=== PATIENT | female | born 1990 | race Caucasian/White ===

== ENCOUNTER 2019-05-22 23:25 | Inpatient (IN) | payer BC ==
[2019-05-22] MEDS ORDERED: RINGERS SOLUTION,LACTATED 1,000 ML IV PRN (23:36)
[2019-05-23 00:04] LABS: ABSOLUTE EOSINOPHILS # (AUTO) 0.1 10^3/uL (0.0-0.6); ABSOLUTE MONOCYTES (AUTO) 0.4 10^3/uL (0.1-1.4); ABSOLUTE NEUT (AUTO) 3.6 10^3/uL (1.7-8.2); BASOPHILS % (AUTO) 0.4 % (0-2); EOSINOPHILS % (AUTO) 1.4 % (0-6); HEMATOCRIT 35.8 % (36.0-47.0); HEMOGLOBIN 12.8 g/dL (12.0-15.5); LYMPHOCYTES % (AUTO) 42.4 % (13-45); MEAN CORPUSCULAR HEMOGLOBIN 32.9 pg (27.0-33.4); MEAN CORPUSCULAR HGB CONC 35.8 g/dL (32.0-36.0); MEAN CORPUSCULAR VOLUME 92 fl (80-97); MONOCYTES % (AUTO) 5.6 % (3-13); PLATELET COUNT 174 10^3/uL (150-450); RED BLOOD COUNT 3.89 10^6/uL (3.72-5.28); RED CELL DISTRIBUTION WIDTH 13.2 % (11.5-14.0); SEGMENTED NEUTROPHILS % (AUTO) 50.2 % (42-78); TOTAL CELLS COUNTED % (AUTO) 100 %; WHITE BLOOD COUNT 7.1 10^3/uL (4.0-10.5)
[2019-05-23 01:29] LABS: APPEARANCE,URINE CLEAR; BILIRUBIN,URINE NEGATIVE (NEGATIVE); COLOR,URINE STRAW; GLUCOSE, URINE NEGATIVE (NEGATIVE); KETONES,URINE NEGATIVE (NEGATIVE); LEUKOCYTE ESTERASE,URINE NEGATIVE (NEGATIVE); NITRITE,URINE NEGATIVE (NEGATIVE); PROTEIN,URINE NEGATIVE (NEGATIVE); URINE SPECIFIC GRAVITY 1.005; UROBILINOGEN,URINE NEGATIVE mg/dL (<2.0)
[2019-05-23 02:22] LABS: URINE AMPHETAMINES SCREEN NEGATIVE; URINE BARBITURATES SCREEN NEGATIVE; URINE BENZODIAZEPINES SCREEN NEGATIVE; URINE COCAINE SCREEN NEGATIVE; URINE MARIJUANA (THC) SCREEN NEGATIVE; URINE METHADONE SCREEN NEGATIVE; URINE PHENCYCLIDINE SCREEN NEGATIVE
--- NOTE | 2019-05-23 03:35 | Admission Physical ---
Datetime Report Generated by CPN: 05/23/2019 03:35 CURRENT ADMISSION Chief Complaint: Uterine Contractions; Suspected Ruptured Membranes Admit Impression : Term, Intrauterine ; Active Labor Admit Plan: Admit to Unit; Initiate Labor Protocol ALLERGIES Medication Allergies: No Medication Allergies: No Known Allergies (05/23/2019) Latex: No Latex Allergies OBSTETRICAL HISTORY EDC: 05/30/2019 00:00 : 2 Para: 0 Term: 0 : 0 SAB: 1 IAB: 0 Ectopic: 0 Livin Cesareans: 0 VBACs: 0 Multiple Births: 0 Gestational Diabetes: No Rh Sensitization: No Incompetent Cervix: No DOROTHY: No Infertility: No ART Treatment: No Uterine Anomaly: No IUGR: No Hx Previous C/S: No Macrosomia: No Hx Loss/Stillborn: No PIH: No Hx : No Placenta Previa/Abruption: No Depression/PP Depression: No PTL/PROM: No Post Hemorrhage: No Current Procedures: Ultrasound Obstetrical History Comments: G1: 2018, SAB _5 weeks G2: current SEE RECORDS Alcohol: No Marijuana : No Cocaine: No Other Illicit Drugs: No Cigarettes: Never Smoker. [id number] MEDICAL HISTORY Diabetes: No Blood Transfusion: No Pulmonary Disease (Asthma, TB): No Breast Disease: No Hypertension: No Lopper Surgery: No Heart Disease: No Hosp/Surgery: No Autoimmune Disorder: No Anesthetic Complications: No Kidney Disease: No Abnormal Pap Smear: Yes Neuro/Epilepsy: No Psychiatric Disorders: No Other Medical Diseases: No Hepatitis/Liver Disease: No Significant Family History: No Varicosities/Phlebitis: No Trauma/Violence : No Thyroid Dysfunction: No Medical History Comments: prior abnormal pap "a long time ago" but WNL since INFECTIOUS HISTORY Gonorrhea: No Genital Herpes: No Chlamydia: No Tuberculosis: No Syphilis: No Hepatitis: No HIV/AIDS Exposure: No Rash or Viral Illness: No HPV: No Infectious History Comments: +HPV 2009, biopsy WNL PHYSICAL EXAM General: Normal HEENT: Normal Neurologic: Normal Thyroid: Normal Heart: Normal Lungs: Normal Breast: Normal Back: Normal Abdomen: Normal Genitourinary Exam: Normal Extremities: Normal DTRs: Normal Pelvic Type: Adequate Vital Signs: Reviewed VAGINAL EXAM Dilatation: 2 Effacement: 50 Station: -2 MEMBRANES Pooling: Positive Membranes: Ruptured Amniotic Fluid Color: Meconium, Light FETUS A EGA: 39.0 Monitoring: External US FHR- Baseline: 130 Variability: Moderate 6-25bpm Accelerations: 15X15 Decelerations: None FHR Category: Category I Estimated Weight (gm): 3700 Presentation: Vertex PLANS FOR LABOR AND DELIVERY Labor and Delivery: None Pain Management: Natural; Epidural Feeding Preference: Breast Benefit of Breast Feed Discussed: Yes Circumcision: N/A INFORMED CONSENT Signature: with User ID: [email or web address]
[2019-05-23] MEDS ORDERED: PROMETHAZINE HCL INJ 25 MG/1 ML VIAL ONE (03:45)
[2019-05-23] MEDS ORDERED: NALBUPHINE HCL INJ 10 MG/1 ML AMPULE ONE (03:45)
[2019-05-23] MEDS ORDERED: NALBUPHINE HCL INJ 10 MG/1 ML AMPULE INJ ONE (04:00)
[2019-05-23] MEDS ORDERED: PROMETHAZINE HCL INJ 25 MG/1 ML VIAL IV ONE (04:00)
[2019-05-23] MEDS ORDERED: OXYTOCIN/NORMAL SALINE 20 UNIT/1,000 ML RTUINJ ONE (06:28)
[2019-05-23] MEDS ORDERED: MISOPROSTOL 0.2 MG TABLET ONE (06:28)
[2019-05-23] MEDS ORDERED: LIDOCAINE 1% INJ-PF (10 MG/ML) 30 ML SDV ONE (06:28)
[2019-05-23] MEDS ORDERED: ONDANSETRON HCL INJ/PF 4 MG/2 ML SDV IV ONE (07:52)
[2019-05-23] MEDS ORDERED: PROMETHAZINE HCL 25 MG TABLET PO PRN (07:58)
[2019-05-23] MEDS ORDERED: PROMETHAZINE HCL INJ 25 MG/1 ML VIAL IV PRN (07:58)
[2019-05-23] MEDS ORDERED: NA PHOS,M-B/NA PHOS,DI-BA (ADULT) 133 ML ENEMA PR PRN (07:58)
[2019-05-23] MEDS ORDERED: MEASLES,MUMPS&RUBELLA VACC/PF 0.5 ML VIAL SUBCUT PRN (07:58)
[2019-05-23] MEDS ORDERED: MAGNESIUM HYDROXIDE SUSP 30 ML UDCUP PO PRN (07:58)
[2019-05-23] MEDS ORDERED: DIPHENHYDRAMINE HCL 25 MG CAPSULE PO PRN (07:58)
[2019-05-23] MEDS ORDERED: BENZOCAINE/MENTHOL AEROSOL SPRAY 56 ML TOP PRN (07:58)
[2019-05-23] MEDS ORDERED: ACETAMINOPHEN WITH CODEINE #3 TABLET PO PRN ×2 (07:58)
[2019-05-23] MEDS ORDERED: GLYCERIN/WITCH HAZEL LEAF 1 EACH MED..WIPE TP PRN (07:58)
[2019-05-23] MEDS ORDERED: PSEUDOEPHEDRINE HCL 30 MG TABLET PO PRN (07:58)
[2019-05-23] MEDS ORDERED: DIPH/PERTUSS(ACELL)/TETANUS VAC/PF 0.5 ML SYR (>=10YO) IM PRN (07:58)
[2019-05-23] MEDS ORDERED: DIBUCAINE 1% OINTMENT 28 GM TP PRN (07:58)
[2019-05-23] MEDS ORDERED: OXYTOCIN/NORMAL SALINE 20 UNIT/1,000 ML RTUINJ IV PRN (07:58)
[2019-05-23] MEDS ORDERED: ACETAMINOPHEN 650 MG SUPP.RECT PR PRN (07:58)
[2019-05-23] MEDS ORDERED: ZOLPIDEM TARTRATE 5 MG TABLET PO PRN (07:58)
[2019-05-23] MEDS ORDERED: PROMETHAZINE HCL 25 MG SUPP.RECT PR PRN (07:58)
[2019-05-23] MEDS ORDERED: BENZOCAINE/MENTHOL AEROSOL SPRAY 56 ML ONE (09:31)
[2019-05-23] MEDS: FAMOTIDINE 20 MG TABLET PO SCH ×2 (12:42→21:51)
[2019-05-23] MEDS: DOCUSATE SODIUM 100 MG CAPSULE PO SCH ×2 (12:42→17:36)
[2019-05-23] MEDS: FERROUS SULFATE 325 MG TABLET PO SCH ×2 (12:42→17:37)
[2019-05-23] MEDS: PRENATAL VITAMIN W DHA CAPSULE PO SCH (12:43)
[2019-05-23] MEDS: SENNOSIDES/DOCUSATE 8.6-50 MG 1 EACH TABLET PO SCH (12:43)
[2019-05-23] MEDS: IBUPROFEN 800 MG TABLET PO SCH ×2 (14:14→21:51)
[2019-05-24] MEDS: IBUPROFEN 800 MG TABLET PO SCH ×3 (05:10→21:50)
[2019-05-24 07:25] LABS: HEMATOCRIT 33.2 % (36.0-47.0); HEMOGLOBIN 11.6 g/dL (12.0-15.5); MEAN CORPUSCULAR HEMOGLOBIN 32.4 pg (27.0-33.4); MEAN CORPUSCULAR HGB CONC 34.9 g/dL (32.0-36.0); MEAN CORPUSCULAR VOLUME 93 fl (80-97); PLATELET COUNT 129 10^3/uL (150-450); RED BLOOD COUNT 3.58 10^6/uL (3.72-5.28); RED CELL DISTRIBUTION WIDTH 13.3 % (11.5-14.0); WHITE BLOOD COUNT 11.5 10^3/uL (4.0-10.5)
--- NOTE | 2019-05-24 10:28 | PDOC PROGRESS REPORT ---
Subjective-OB Progress Note for:: 05/24/19 Subjective: reports bleeding slowing, pain controlled with current meds. denies needs Physical Exam (OB) Vital Signs: Temp Pulse Resp BP Pulse Ox 97.8 F 76 16 117/75 100 05/24/19 07:37 05/24/19 07:37 05/24/19 07:37 05/24/19 07:37 05/24/19 07:37 Intake & Output 05/23/19 05/24/19 05/25/19 06:59 06:59 06:59 Weight 76.3 kg - Abdomen Description: Soft Hernia Present: No Fundal Description: Firm, Midline Fundal Height: u/u - u/2 - Abdominal Distension: No distension Tenderness: Nontender - Extremities Lower extremities: Marita's sign - neg Calf: Normal, Nontender Objective-Diagnostic Laboratory: 05/24/19 06:43 05/24/19 06:43 WBC 11.5 H RBC 3.58 L Hgb 11.6 L Hct 33.2 L MCV 93 MCH 32.4 MCHC 34.9 RDW 13.3 Plt Count 129 L Assessment and Plan(PN) - Assessment and Plan (1) Active labor at term Is this a current diagnosis for this admission?: Yes (2) Spontaneous rupture of amniotic membranes Is this a current diagnosis for this admission?: Yes (3) Vaginal delivery Is this a current diagnosis for this admission?: Yes - Time Spent with Patient Time with patient: Less than 15 minutes Medications reviewed and adjusted accordingly: Yes - Disposition Anticipated Discharge: Home Within: within 24 hours
[2019-05-24] MEDS: DOCUSATE SODIUM 100 MG CAPSULE PO SCH ×2 (10:54→17:25)
[2019-05-24] MEDS: SENNOSIDES/DOCUSATE 8.6-50 MG 1 EACH TABLET PO SCH (10:54)
[2019-05-24] MEDS: PRENATAL VITAMIN W DHA CAPSULE PO SCH (10:54)
[2019-05-24] MEDS: FAMOTIDINE 20 MG TABLET PO SCH ×2 (10:54→21:50)
[2019-05-24] MEDS: FERROUS SULFATE 325 MG TABLET PO SCH ×2 (10:54→17:25)
[2019-05-25] MEDS: IBUPROFEN 800 MG TABLET PO SCH (05:37)
[2019-05-25] MEDS: FERROUS SULFATE 325 MG TABLET PO SCH (10:03)
[2019-05-25] MEDS: DOCUSATE SODIUM 100 MG CAPSULE PO SCH (10:03)
[2019-05-25] MEDS: PRENATAL VITAMIN W DHA CAPSULE PO SCH (10:03)
[2019-05-25] MEDS: FAMOTIDINE 20 MG TABLET PO SCH (10:03)
[2019-05-25] MEDS: SENNOSIDES/DOCUSATE 8.6-50 MG 1 EACH TABLET PO SCH (10:03)
--- NOTE | 2019-05-25 10:20 | PDOC PROGRESS REPORT ---
Subjective-OB Progress Note for:: 05/25/19 Subjective: Doing well, ready to go home, family at BS, Physical Exam (OB) Vital Signs: Temp Pulse Resp BP Pulse Ox 97.8 F 76 16 117/75 100 05/24/19 07:37 05/24/19 07:37 05/24/19 07:37 05/24/19 07:37 05/24/19 07:37 Intake & Output 05/24/19 05/25/19 05/26/19 06:59 06:59 06:59 Intake Total 1050 Balance 1050 - PIH/Pre-Eclampsia DTR's: 1 + Clonus: Negative Headache: Absent Epigastric Pain: No Visual Changes: No - Lochia Lochia Amount: Scant < 10 ml Lochia Color: Rubra/Red - Abdomen Description: Soft, Round Hernia Present: No Fundal Description: Firm, Midline Fundal Height: u/u - u/2 Objective-Diagnostic Laboratory: 05/24/19 06:43 Assessment and Plan(PN) - Assessment and Plan (1) Vaginal delivery Is this a current diagnosis for this admission?: Yes (2) Active labor at term Is this a current diagnosis for this admission?: Yes (3) Spontaneous rupture of amniotic membranes Is this a current diagnosis for this admission?: Yes - Time Spent with Patient Time with patient: Less than 15 minutes Medications reviewed and adjusted accordingly: Yes - Disposition Anticipated Discharge: Home Within: within 24 hours
--- NOTE | 2019-05-25 10:23 | PDOC DISCHARGE SUMMARY ---
Impression - Admit/DC Date/PCP Admission Date/Primary Care Provider: 05/22/19 23:39 JERED VELASQUEZ MD Discharge Date: 05/25/19 - Discharge Diagnosis (1) Vaginal delivery Is this a current diagnosis for this admission?: Yes (2) Active labor at term Is this a current diagnosis for this admission?: Yes (3) Spontaneous rupture of amniotic membranes Is this a current diagnosis for this admission?: Yes - Additional Information Resuscitation Status: Full Code Discharge Diet: As Tolerated, Regular Discharge Activity: Activity As Tolerated, Pelvic Rest Referrals: JERED VELASQUEZ MD [Primary Care Provider] - Home Medications: Vits96/Iron Fum/Folic [ Tablet] 1 each PO DAILY 05/23/19 HPI Gestational Age: 39 Reason(s) for Admission: Onset of Labor, PROM Procedures: Ultrasound Intrapartum Procedure(s): Spontaneous Vaginal Delivery Hospital Course Hospital Course: routine Results Laboratory Results: WBC 11.5 10^3/uL (4.0-10.5) H 05/24/19 06:43 RBC 3.58 10^6/uL (3.72-5.28) L 05/24/19 06:43 Hgb 11.6 g/dL (12.0-15.5) L 05/24/19 06:43 Hct 33.2 % (36.0-47.0) L 05/24/19 06:43 MCV 93 fl (80-97) 05/24/19 06:43 MCH 32.4 pg (27.0-33.4) 05/24/19 06:43 MCHC 34.9 g/dL (32.0-36.0) 05/24/19 06:43 RDW 13.3 % (11.5-14.0) 05/24/19 06:43 Plt Count 129 10^3/uL (150-450) L 05/24/19 06:43 Lymph % (Auto) 42.4 % (13-45) 05/22/19 23:49 [place] % (Auto) 5.6 % (3-13) 05/22/19 23:49 Eos % (Auto) 1.4 % (0-6) 05/22/19 23:49 Baso % (Auto) 0.4 % (0-2) 05/22/19 23:49 Absolute Neuts (auto) 3.6 10^3/uL (1.7-8.2) 05/22/19 23:49 Absolute Lymphs (auto) 3.0 10^3/uL (0.5-4.7) 05/22/19 23:49 Absolute Monos (auto) 0.4 10^3/uL (0.1-1.4) 05/22/19 23:49 Absolute Eos (auto) 0.1 10^3/uL (0.0-0.6) 05/22/19 23:49 Absolute Basos (auto) 0.0 10^3/uL (0.0-0.2) 05/22/19 23:49 Seg Neutrophils % 50.2 % (42-78) 05/22/19 23:49 Urine Color STRAW 05/22/19 23:33 Urine Appearance CLEAR 05/22/19 23:33 Urine pH 7.0 (5.0-9.0) 05/22/19 23:33 Ur Specific [place] 1.005 05/22/19 23:33 Urine Protein NEGATIVE mg/dL (NEGATIVE) 05/22/19 23:33 Urine Glucose (UA) NEGATIVE mg/dL (NEGATIVE) 05/22/19 23:33 Urine Ketones NEGATIVE mg/dL (NEGATIVE) 05/22/19 23:33 Urine Blood MODERATE (NEGATIVE) H 05/22/19 23:33 Urine Nitrite NEGATIVE (NEGATIVE) 05/22/19 23:33 Urine Bilirubin NEGATIVE (NEGATIVE) 05/22/19 23:33 Urine Urobilinogen NEGATIVE mg/dL (<2.0) 05/22/19 23:33 Ur Leukocyte Esterase NEGATIVE (NEGATIVE) 05/22/19 23:33 Urine Ascorbic Acid NEGATIVE (NEGATIVE) 05/22/19 23:33 Urine Opiates Screen NEGATIVE 05/22/19 23:33 Urine Methadone Screen NEGATIVE 05/22/19 23:33 Ur Barbiturates Screen NEGATIVE 05/22/19 23:33 Ur Phencyclidine Scrn NEGATIVE 05/22/19 23:33 Ur Amphetamines Screen NEGATIVE 05/22/19 23:33 U Benzodiazepines Scrn NEGATIVE 05/22/19 23:33 Urine Cocaine Screen NEGATIVE 05/22/19 23:33 U Marijuana (THC) Screen NEGATIVE 05/22/19 23:33 RPR NONREACTIVE (NONREACTIVE) 05/22/19 23:49 Blood Type A POSITIVE 05/22/19 23:49 Antibody Screen NEGATIVE 05/22/19 23:49 Plan Health Concerns: routine Plan of Treatment: normal PP Goals: no complications Time Spent: Less than 30 Minutes - Baby home with mom, rev S&S to report
[2019-05-25 11:37] VITALS: BP 115/76
[2019-05-25 12:05] LABS: PLATELET COUNT 150 10^3/uL (150-450)
--- NOTE | 2019-05-27 09:49 | Delivery Summary ---
Del Sum A-C Datetime Report Generated by CPN: 05/27/2019 09:48 DELIVERY PERSONNEL DELIVERY PERSONNEL: [id number] Delivery Doctor:: Carmen Zapata MD Labor and Delivery Nurse:: Yari Hu RNassistant professor of mathematics Nurse:: Aretha Love RN Nursery Nurse:: Chandrika Wall RN Director Business Travel/HOUSE REPAIRER: Ruthann Botello, ST MATERNAL INFORMATION Delivery Anesthesia: None Medications After Delivery: Pitocin Drip 20 Units/1000ml NSS Meds After Delivery Comment: pitocin 20 units in 1000mL nss Maternal Complications: None LABOR SUMMARY EDC: 05/30/2019 00:00 No. Babies in Womb: 1 Attempted: No Labor Anesthesia: IV Sedation LABOR INFORMATION Reason for Induction: Not Applicable Onset of Labor: 05/23/2019 03:41 Complete Dilatation: 05/23/2019 07:19 Oxytocin: N/A Group B Beta Strep: NEGATIVE Steroids Given: None Reason Steroids Not Administered: Not Applicable MEMBRANES Membranes Rupture Method: Spontaneous Rupture of Membranes: 05/22/2019 22:47 Length of Rupture (hr): 8.90 Amniotic Fluid Color: Light Meconium Amniotic Fluid Amount: Large Amniotic Fluid Odor: Normal STAGES OF LABOR Stage 1 hr: 3 Stage 1 min: 38 Stage 2 hr: 0 Stage 2 min: 22 Stage 3 hr: 0 Stage 3 min: 4 Total Time in Labor hr: 4 Total Time in Labor min: 4 VAGINAL DELIVERY Episiotomy: None Laceration #1: None Laceration Repair: No Sponge Count Correct: Yes Sharps Count Correct: Yes CSECTION DELIVERY Primary Indication: N/A Secondary Indication: N/A CSection Incidence: N/A Labor: N/A Elective: N/A CSection Incision: N/A BABY A INFORMATION Delivery Date/Time: 05/23/2019 07:41 Method of Delivery: Vaginal Born in Route : No : N/A Forceps: N/A Vacuum Extraction: N/A Shoulder Dystocia : No PRESENTATION/POSITION BABY A Presentation: Cephalic Presentation: Cephalic Cephalic Presentation: Vertex Vertex Position: Left Occipital Anterior Breech Presentation: N/A PLACENTA INFORMATION BABY A Placenta Delivery Time : 05/23/2019 07:45 Placenta Method of Delivery: Spontaneous Placenta Status: Delivered SCORES BABY A Heart Rate 1 min: >100 bpm Resp Effort 1 min: Slow, Irregular Reflex Irritability 1 min: Cough or Sneeze or Pulls Away Muscle Tone 1 min: Some Flexion of Extremities Color 1 min: Body [place], Extremities Blue SCORE 1 MIN: 7 Heart Rate 5 min: >100 bpm Resp Effort 5 min: Good Cry Reflex Irritability 5 min: Cough or Sneeze or Pulls Away Muscle Tone 5 min: Active Motion Color 5 min: Body [place], Extremities Blue SCORE 5 MIN: 9 INFORMATION BABY A Gestational Age at Delivery: 39.0 Gestational Status: Full Term- 39- 40.6 Weeks Outcome : Liveborn Condition : Stable Infant Sex: Female Infant Sex: Female IDENTIFICATION BABY A Infant Verification Date/Time: 05/23/2019 09:11 ID Band Number: [id number] Mother's Name Verified: Yes Infant RN Verifying Infant: H Fritz RN and J Shelly, RN WEIGHT/LENGTH BABY A Birthweight (gm): 3718 Weight (lb): 8 Weight (oz): 3 Length (in): 20.00 Length (in): 20.50 Infant Length (cm): 50.80 CORD INFORMATION BABY A No. Cord Vessels: 3 Nuchal Cord : N/A Cord Blood Taken: Yes-For Storage (Mom's Blood type +) Infant Suction: None ASSESSMENT BABY A Skin to Skin: Yes BABY B INFORMATION : N/A
== END 2019-05-25 14:05 | disposition home or self-care (01) | DRG 807 ==
LOC: LC 23:25 → LR 23:39 → 2S 05-23 10:07
PROVIDERS: ADMIT Obstetrics & Gynecology; ATTEND Obstetrics & Gynecology
PROC: 10E0XZZ Delivery of Products of Conception, External Approach (ICD-10-PCS; principal; 2019-05-23)
DX: O77.0 Labor and delivery complicated by meconium in amniotic fluid (principal); Z37.0 Single live birth; Z3A.39 39 weeks gestation of pregnancy
CPT/HCPCS: 36415; 80307; 81005; 85025; 85027; 85049; 86592; 86850; 86900; 86901; J2300; J2550; J2590; J3490